=== PATIENT | male | born 1950 | race Native Hawaiian/Other Pacific Islander ===

== ENCOUNTER 2025-09-08 11:38 | Outpatient (CLI) | payer MEDICARE, OTHER ==
[2025-09-08] MEDS ORDERED: COLLAGENASE 5 GM TUBE UD TP ONE (11:48)
== END 2025-09-08 23:59 | disposition home health service (06) ==
LOC: WOU 11:38
PROVIDERS: ATTEND Specialist
DX: I89.0 Lymphedema, not elsewhere classified (principal); E11.9 Type 2 diabetes mellitus without complications; L85.3 Xerosis cutis; J96.12 Chronic respiratory failure with hypercapnia
CPT/HCPCS: 29580; A6454